=== PATIENT | female | born 1945 | race Caucasian/White ===

== ENCOUNTER 2017-06-16 09:46 | Emergency (ER) | payer MEDICARE, OTHER ==
[~2017-06-16] VITALS: Ht 167.6 cm; Wt 81.7 kg
[~2017-06-16 09:46] MED LIST: Aspir 8181 MG PO; Cyclobenzaprine5 MG PO; HYDURE500 PO; LEVSOD50 PO; NAMENDA PO; NAPR220; Naprosyn500 MG PO; Norco 5-325 Ta1 EACH PO; SERT100 PO
[2017-06-16] MEDS ORDERED: Cyclobenzaprine5 MG PO (10:00)
[2017-06-16] MEDS ORDERED: LEVSOD50 PO (10:02)
[2017-06-16] MEDS ORDERED: NAPR500 PO (10:03)
[2017-06-16] MEDS ORDERED: SERT100 PO (10:03)
[2017-06-16] MEDS ORDERED: Norco 5-325 Ta1 EACH PO (11:40)
== END 2017-06-16 12:10 | disposition home or self-care (01) ==
LOC: ER 09:46
DX: S46.211A Strain of muscle, fascia and tendon of other parts of biceps, right arm, initial encounter (principal); X50.9XXA Other and unspecified overexertion or strenuous movements or postures, initial encounter; Z88.8 Allergy status to other drugs, medicaments and biological substances; Z79.899 Other long term (current) drug therapy; Z79.82 Long term (current) use of aspirin; Z87.891 Personal history of nicotine dependence
CPT/HCPCS: 73060; 99283